=== PATIENT | male | born 1990 | race Caucasian/White ===

== ENCOUNTER 2021-04-24 08:13 | Emergency (ER) | payer OTHER ==
[~2021-04-24] VITALS: Ht 175.3 cm; Wt 97.5 kg
[2021-04-24] MEDS ORDERED: HYDROCODON-ACE1 EAC7 PO (09:47)
[2021-04-24] MEDS ORDERED: FLEXERIL PO (09:47)
[2021-04-24 09:51] VITALS: BP 138/79
== END 2021-04-24 09:52 | disposition home or self-care (01) ==
LOC: M.ERS 08:13
DX: S39.012A Strain of muscle, fascia and tendon of lower back, initial encounter (principal); R05.9 Cough, unspecified; X58.XXXA Exposure to other specified factors, initial encounter; Y93.89 Activity, other specified; Y92.89 Other specified places as the place of occurrence of the external cause; Y99.8 Other external cause status